=== PATIENT | male | born 1990 | race Caucasian/White ===

== ENCOUNTER 2018-09-01 15:28 | Emergency (ER) | payer BC ==
[2018-09-01] MEDS ORDERED: ONDANSETRON HCL IV 4 MG/2 ML VIAL IVP ONE ×2 (15:37→17:37)
[2018-09-01] MEDS ORDERED: MORPHINE SULFATE 10 MG/ML VIAL IVP ONE (15:37)
--- NOTE | 2018-09-01 15:42 | Emergency Department Record ---
History of Present Illness - General Chief Complaint: Abdominal Pain Stated Complaint: PAIN R SIDE NEAR NAVAL Time Seen by Provider: 09/01/18 15:33 Source: Patient Mode of Arrival: Ambulatory Limitations: No limitations - History of Present Illness Initial Comments: 28 yo male presents to ED for evaluation of pain to the right abdomen that began 2 hours prior to arrival. Patient that his symptoms began gradually, reports nausea without vomiting. Patient denies fevers, chills, flank pain, or hematuria symptoms. Patient denies health problems at his baseline and denies previous abdominal surgery. MD Complaint: Abdominal pain Onset/Timin -: Hour(s) Location: Periumbilical, RLQ Severity: Moderate Severity scale (1-10): 6 Quality: Aching, Sharp Consistency: Constant, Intermittent Improves With: Nothing Worsens With: Nothing Associated Symptoms: Nausea - Related Data Home Medications Medication Instructions Recorded Confirmed Last Taken Doxycycline Monohydrate 100 mg PO DAILY 09/01/18 09/01/18 09/01/18 Previous Rx's Medication Instructions Recorded Ondansetron [Zofran Odt] 4 mg PO Q6H PRN #15 tab.rapdis 09/01/18 Allergies Allergy/AdvReac Type Severity Reaction Status Date / Time No Known Drug Allergies Allergy Verified 09/01/18 15:36 Travel Screening - Travel/Exposure Within Last 30 Days Have you traveled within the last 30 days?: No - Travel/Exposure Within Last Year Have you traveled outside the [place] in the last year?: No - Additonal Travel Details Have you been exposed to anyone with a communicable illness?: No - Travel Symptoms Symptom Screening: None Review of Systems Constitutional: Denies: Chills, Fever, Malaise, Night sweats Eyes: Denies: Eye discharge, Eye pain ENT: Denies: Congestion, Ear pain, Epistaxis Respiratory: Denies: Cough, Dyspnea Cardiovascular: Denies: Chest pain, Dyspnea on exertion Endocrine: Denies: Fatigue, Heat or cold intolerance Gastrointestinal: Reports: Abdominal pain, Nausea. Denies: Vomiting Genitourinary: Denies: Incontinence, Retention Musculoskeletal: Denies: Arthralgia, Back pain, Gout, Joint swelling Skin: Denies: Bruising, Change in color Neurological: Denies: Abnormal gait, Confusion, Headache, Seizure Psychiatric: Denies: Anxiety Hematological/Lymphatic: Denies: Anemia, Blood Clots Past Medical History - SOCIAL HISTORY Smoking Status: Never smoker Alcohol Use: Occasional Drug Use: None - RESPIRATORY Hx Respiratory Disorders: No - CARDIOVASCULAR Hx Cardio Disorders: No - NEURO Hx Neuro Disorders: No - GI Hx GI Disorders: No - Hx Genitourinary Disorders: No - ENDOCRINE Hx Endocrine Disorders: No - MUSCULOSKELETAL Hx Musculoskeletal Disorders: No - PSYCH Hx Psych Problems: Yes Hx Anxiety: Yes - HEMATOLOGY/ONCOLOGY Hx Hematology/Oncology Disorders: No Family Medical History Any Significant Family History?: Yes Hx Diabetes: Father Physical Exam - General General Appearance: Alert, Oriented x3, Cooperative, Moderate distress Limitations: No limitations - Head Head exam: Atraumatic, Normocephalic, Normal inspection Head exam detail: negative: Abrasion, Contusion, Barclay's sign, General tenderness, Hematoma, Laceration - Eye Eye exam: Normal appearance. negative: Conjunctival injection, Periorbital swelling, Periorbital tenderness, Scleral icterus - ENT Ear exam: negative: Auricular hematoma, Auricular trauma Nasal Exam: negative: Active bleeding, Discharge, Dried blood, Foreign body Mouth exam: negative: Drooling, Laceration, Muffled voice, Tongue elevation - Neck Neck exam: Normal inspection. negative: Meningismus, Tenderness - Respiratory Respiratory exam: Normal lung sounds bilaterally. negative: Rales, Respiratory distress, Rhonchi, Stridor - Cardiovascular Cardiovascular Exam: Regular rate, Normal rhythm, Normal heart sounds - GI/Abdominal GI/Abdominal exam: Soft, Tenderness (Mild-moderate TTP RLQ on examination, no rebound or guarding symptoms are present.). negative: Rebound, Rigid - Rectal Rectal exam: Deferred - exam: Deferred - Extremities Extremities exam: Normal inspection. negative: Pedal edema, Tenderness - Back Back exam: Denies: CVA tenderness (R), CVA tenderness (L) - Neurological Neurological exam: Alert, Normal gait, Oriented X3 - Psychiatric Psychiatric exam: Normal affect, Normal mood - Skin Skin exam: Normal color. negative: Abrasion Type of lesion: negative: abrasion Course Vital Signs 09/01/18 15:30 Temperature 97.9 F Pulse Rate 84 Respiratory 20 Rate Blood Pressure 131/89 Pulse Ox 99 - Reevaluation(s) Reevaluation #1: 09/01/18 16:09 Laboratory studies were reviewed and are grossly unremarkable for an acute process. UA pending. Patient reports overall improvement in his pain symptoms as well. Reevaluation #2: 09/01/18 16:57 CT Abdomen and Pelvis: Small ureteral calculus right distal UVJ Patient is resting comfortably at this time, awaiting UA to exclude infection. Reevaluation #3: 09/01/18 18:09 UA reviewed: >50 RBCs No WBCs No epithelial cells No bacteria Patient was updated on all results, appears stable for discharge with PCP follow -up as his symptoms are greatly improved. Medical Decision Making - Lab Data Result diagrams: 09/01/18 15:40 09/01/18 15:40 Disposition Disposition: Discharge Clinical Impression: Ureteral stone Disposition: Home, Self-Care Condition: (2) Stable Instructions: Ureteral Stones (ED) Additional Instructions: Return to ED if your symptoms worsen or if you have any concerns. Zofran as directed. Follow-up with your family doctor in 3-5 days as directed. Prescriptions: Ondansetron [Zofran Odt] 4 mg PO Q6H PRN #15 tab.rapdis PRN Reason: Nausea/Vomiting Forms: Patient Portal Access Time of Disposition: 18:10 Quality - Quality Measures Quality Measures: N/A - Blood Pressure Screening Does Patient Have Any of the Following: No Blood Pressure Classification: Pre-Hypertensive BP Reading Systolic Measurement: 131 Diastolic Measurement: 89 Screening for High Blood Pressure: < Pre-Hypertensive BP, F/U Documented > [ G8950] Pre-Hypertensive Follow-up Interventions: Referral to alternative/primary care provider.
[2018-09-01] MEDS ORDERED: 0.9 % SODIUM CHLORIDE 1000ML 1,000 ML IV SCH (15:45)
[2018-09-01 15:47] LABS: BASO % 0.5 % (0-6); EOS % 1.6 % (0-6); GRAN % 59.6 % (47-80); HEMATOCRIT 48.3 % (42.0-52.0); HEMOGLOBIN 17.2 gm/dl (14.0-18.0); LYMPH % 31.4 % (16-45); MEAN CELL VOLUME 79.7 fl (81-97); MEAN CORPUSCULAR HGB CONC 35.6 g/dl (32-36); MONO % 6.9 % (0-9); PLATELET COUNT 233 K/uL (130-400); RED BLOOD COUNT 6.06 M/uL (4.40-5.70); RED CELL DISTRIBUTION WIDTH 13.6 % (11.5-14.5); WHITE BLOOD COUNT W/O DIFF 9.1 K/uL (4.2-12.2)
[2018-09-01] MEDS ORDERED: KETOROLAC 30 MG/ML VIAL IVP ONE (15:48)
[2018-09-01 15:49] LABS: MEAN CORPUSCULAR HEMOGLOBIN 28.3 pg (27-33)
[2018-09-01] MEDS ORDERED: HYDROMORPHONE HCL 2 MG/ML VIAL IVP ONE (15:59)
[2018-09-01 16:02] LABS: BLOOD UREA NITROGEN 13 mg/dL (6-20); CREATININE 1.2 mg/dL (0.7-1.2); EST GLOMERULAR FILTRATION RATE > 60 mL/min
[2018-09-01 16:03] LABS: TOTAL PROTEIN 8.5 g/dL (6.6-8.7)
[2018-09-01 16:05] LABS: GLUCOSE,RANDOM 103 mg/dL (74-109)
[2018-09-01 16:08] LABS: ALB/GLOB RATIO 1.5 (1.1-1.8); ALBUMIN 5.1 g/dL (4.0-5.0); ALKALINE PHOSPHATASE 89 U/L (40-129); ALT/SGPT 32 U/L (<41); AST/SGOT 27 U/L (10.0-50.0); LIPASE 27 U/L (13-60)
[2018-09-01 17:46] LABS: URINE BILIRUBIN NEGATIVE (NEGATIVE); URINE BLOOD LARGE (NEGATIVE); URINE COLOR YELLOW; URINE GLUCOSE (UA) NEGATIVE (NEGATIVE); URINE KETONE NEGATIVE (NEGATIVE); URINE LEUKOCYTE ESTERASE NEGATIVE (NEGATIVE); URINE NITRITE NEGATIVE (NEGATIVE); URINE PROTEIN NEGATIVE (NEGATIVE); URINE UROBILINOGEN 0.2 E.U./dL (0.20 - 1.00)
[2018-09-01 17:47] LABS: URINE APPEARANCE SL CLOUDY
[2018-09-01 18:00] LABS: URINE BACTERIA NONE SEEN; URINE EPITHELIAL CELLS 0 - 2 (FEW); URINE RBC >50 (NONE SEEN); URINE WBC 0 - 2 (0-2/hpf)
[2018-09-01] MEDS ORDERED: ONDANSETRON 4 MG ODT TABLET SL ONE (18:12)
--- NOTE | 2018-09-02 08:17 | CT SCAN REPORT ---
EXAM: EMERGENCY CT OF THE ABDOMEN AND PELVIS HISTORY: RIGHT LOWER QUADRANT ABDOMINAL PAIN. TECHNIQUE: Axial CT scan of the abdomen and pelvis was performed following the intravenous administration of iodated contrast media. No oral contrast utilized at the referring physician's request. Please see the medial record for IV contrast specifics. Comparison: None. FINDINGS: No calcified gallstones are seen within the gallbladder. No definite hepatic, splenic, adrenal, pancreatic, or left renal mass identified. There are a few tiny low attenuation foci in the right kidney which are too small to accurately measure, but are likely a few tiny renal cysts. Small periumbilical anterior abdominal wall hernia containing adipose tissue, but no bowel. Some mild prostate calcification is present. Evaluation of the bowel is very limited without oral contrast, however, no appendicitis identified. No free intraperitoneal air or free intraperitoneal fluid identified. IMPRESSION: 1. THERE ARE PROBABLY A FEW TINY CYSTS IN THE RIGHT KIDNEY. 2. SMALL PERIUMBILICAL ANTERIOR ABDOMINAL WALL HERNIA CONTAINING ADIPOSE TISSUE WITH NO BOWEL. 3. NO APPENDICITIS IDENTIFIED. NO FREE AIR OR FREE FLUID SEEN. ADDENDUM: Upon further review, there is a tiny calcification only about 2 mm in size that appears to be within the distal right ureter. This probably is causing a mild degree of obstruction in that the contrast in the collecting system of the right kidney is not as prominent as that on the left on the routine delayed images as well. IMPRESSION: TINY DISTAL RIGHT URETERAL CALCULUS CAUSING LOW GRADE OBSTRUCTION ON THE RIGHT. JOB NUMBER: [id number] [facility]
== END 2018-09-01 18:37 | disposition home or self-care (01) ==
LOC: ER 15:28
DX: N20.1 Calculus of ureter (principal); R11.0 Nausea; R10.31 Right lower quadrant pain
CPT/HCPCS: 74177; 80053; 81001; 83690; 85025; 96360; 96361; 96374; 96375; 96376; 99284; J1885; J2270; J2405; J7030